=== PATIENT | female | born 1945 | race Caucasian/White ===

== ENCOUNTER 2018-08-30 06:18 | Inpatient (IN) | payer OTHER ==
[~2018-08-30] VITALS: Ht 152.4 cm; Wt 58.1 kg
[~2018-08-30 06:18] MED LIST: ADVAIR 2501 DISK W/1; AVAPRO150 MG; METFORMIN HCL500 M2; NEURONTIN800 MG; NORVASC5 MG; SINGULAIR10 MG; [UNRECOGNIZED DRUG - OTHER]
[2018-08-30] MEDS ORDERED: SPIRIVA RESPIMAT4 G1 (06:26)
[2018-08-30] MEDS ORDERED: VENTOLIN HFA18 GM (06:26)
[2018-08-30] MEDS ORDERED: PREDNISOLONE SO10 MG (06:27)
[2018-08-30] MEDS ORDERED: VITAMIN D-32000 UNIT (06:28)
[2018-08-30] MEDS ORDERED: TIROSINT50 MCG (06:28)
[2018-08-30] MEDS ORDERED: CLONAZEPAM2 MG (06:29)
[2018-08-30] MEDS ORDERED: ATORVASTATIN CA10 MG (06:29)
[2018-08-30] MEDS ORDERED: ASPIR 8181 MG (06:29)
--- NOTE | 2018-08-30 06:29 | NUR ---
SE RECIBE PTE LA CUAL REFIERE PRESENTAR DOLOR ABD COSNTANTE DESDE TEMPRANO EN LA NOCHE, FAMILIAR DE PTE REFIERE OBSERVAR SACHI EN EXCRETA LA CUAL PRESENTAN EN ILEOSTOMIA. FAMILIAR DE PTE REFIERE QUE OBSERVO SINTOMAS SIMILARES EN PTE HACE UNOS LOZOYA.
[2018-08-30] MEDS ORDERED: BREO ELLIPTA 21 EACH (06:30)
--- NOTE | 2018-08-30 07:54 | NUR ---
EVALUADA POR EL SE ORIENTA SOBRE TRATAMIENTO MEDICO POR LE EXTRAE MUESTRAS DE SACHI Y SE ENVIAN AL ALBORATORIO. SE MANTIENE EN OBSERVACION.
--- NOTE | 2018-08-30 16:00 | NUR ---
PACIENTE ALERTA Y ORIENTADA X3. EN LARA CON BARANDAS ELEVADAS Y INTERCOM ACCESIBLE. IV FLUID PATENTE Y MARCOS DE EDEMA Y ERITEMA. PENDIENTE RE-EVALUACION MEDICA.
[2018-09-06] MEDS ORDERED: CIPRO500 MG PO (10:49)
[2018-09-06] MEDS ORDERED: FLAGYL500MG PO (10:49)
[2018-09-06] MEDS ORDERED: INTESTINEX680 M1 PO (10:49)
== END 2018-09-06 11:45 | disposition home or self-care (01) | DRG 394 ==
LOC: ER 06:18 → SURH 19:38
PROVIDERS: ADMIT Surgery
PROC: BW21ZZZ Computerized Tomography (CT Scan) of Abdomen and Pelvis (ICD-10-PCS; principal; 2018-08-30)
PROC: 02HV33Z Insertion of Infusion Device into Superior Vena Cava, Percutaneous Approach (ICD-10-PCS; 2018-08-31)
DX: K94.01 Colostomy hemorrhage (principal); K62.5 Hemorrhage of anus and rectum; K52.89 Other specified noninfective gastroenteritis and colitis; M34.89 Other systemic sclerosis; J84.10 Pulmonary fibrosis, unspecified; M32.8 Other forms of systemic lupus erythematosus; E11.9 Type 2 diabetes mellitus without complications; E03.8 Other specified hypothyroidism; I10 Essential (primary) hypertension; Z79.4 Long term (current) use of insulin

== ENCOUNTER 2019-02-10 00:07 | Emergency (ER) | payer OTHER ==
[~2019-02-10] VITALS: Ht 154.9 cm; Wt 57.2 kg
[~2019-02-10 00:07] MED LIST changes: +ASPIR 8181 MG; +ATORVASTATIN CA10 MG; +BREO ELLIPTA 21 EACH; +CIPRO500 MG PO; +CLONAZEPAM2 MG; +FLAGYL500MG PO; +INTESTINEX680 M1 PO; +PREDNISOLONE SO10 MG; +SPIRIVA RESPIMAT4 G1; +TIROSINT50 MCG; +VENTOLIN HFA18 GM; +VITAMIN D-32000 UNIT
== END 2019-02-10 07:11 | disposition home or self-care (01) ==
LOC: ER 00:07
DX: N39.0 Urinary tract infection, site not specified (principal); R10.13 Epigastric pain; R11.11 Vomiting without nausea